=== PATIENT | male | born 1990 | race Two or more races ===

== ENCOUNTER 2023-08-23 22:56 | Emergency (ER) | payer SELFPAY ==
[2023-08-23] MEDS ORDERED: Dexamethasone 10 MG/ML SDV PO ONE (23:31)
[2023-08-23] MEDS ORDERED: Acetaminophen 500 MG Tab PO ONE (23:36)
== END 2023-08-23 23:53 ==
LOC: MW.ED 22:56
DX: Z02.89 Encounter for other administrative examinations (principal)
CPT/HCPCS: 99283; A9270